=== PATIENT | female | born 1965 | race Caucasian/White ===

== ENCOUNTER 2018-08-12 05:13 | Inpatient (IN) ==
--- NOTE | 2018-07-24 10:54 | Anesthesiology Consultation ---
Date of Service July 24, 2018 Assessment & Plan (1) Encounter for pre-operative examination: - No anesthesia records that involve intubations. Chart Review Chart Review: Acceptable Risk for Surgery and Patient seen in Pre Admission T esting Consults Requested medical (Dr. Kacy Piper (07/20)) Patient was seen by PCPs office on 07/20 for preoperative evaluation. Per note from that visit, "found the patient to be medically stable for this procedure and anesthetic agent if her preop studies are unremarkable." Teaching & Discussion Pre-Anesthesia Teaching/Discussion Notes: Instructed NPO after midnight before surgery, except medications with 15 cc of water. Medication instructions provided according to the PAT guidelines. History Surgery Operation Date: 08/12/18 09:35 Proposed Procedures p Right Total Knee Arthroplasty - Tom Reese DO Height/Weight Height: 5 ft 5.5 in Weight: 113.2 kg Allergies Allergy/AdvReac Type Severity Reaction Status Date / Time No Known Allergies Allergy Unverified 07/17/18 09:00 Medications Home Medications Medication Instructions Recorded Confirmed Last Taken Levothyroxine 1 tab PO QAM 07/17/18 07/17/18 07/17/18 ibuprofen 1 - 2 tab PO UD PRN 07/17/18 07/17/18 Unknown Past Medical History Medical History H/O endoscopy Nausea and vomiting after administration of anesthetic agent Osteoarthritis Seasonal allergies Thyroid disease Exercise / Class Metabolic Activity II 4-5 Yardwork/Stairs/Walk 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 Denies CP or SOB. ) Past Family History Family History Father Atrial fibrillation Past Surgical History Surgical History History of arthroscopy of left knee History of arthroscopy of right knee History of bilateral cataract extraction History of cholecystectomy History of colonoscopy History of lipoma REMOVED FROM BACK History of total left knee replacement Past Anesthesia History No Hx of Anesthesia Complications and No Family Hx of Anesthesia Complications History of PONV History of PONV and Hx of Motion Sickness Social History Smoking Status: Never smoker Do You Dip or Chew Tobacco: No Hx Alcohol Use: No Hx Substance Use: No substance use type: does not use Review of Systems Patient denies chest pain, shortness of breath, dyspnea on exertion, cough, wheezing, palpitations. +Joint Pain (Knee) +Acid Reflux (Diet controlled) Physical Exam Vital Signs BP: 124/85 P: 88 R: 18 T: 97.7 SPO2: 97% on RA Constitutional + obese ENMT Thyromental Distance: > or= 3.5 Finger Breadths (3.5) Mallampati Class: I Clear post nasal drip with slight redness of pharynx Neck normal visual inspection and trachea midline; neck extension not limited Respiratory normal respiratory effort Auscultation: lungs clear to auscultation bilaterally Cardiovascular Rate/Rhythm: regular rate and regular rhythm Heart Sounds: no murmur Neurologic moves all extremities Psychiatric Orientation: alert and oriented x 3 Testing Laboratory Results 07/24/18 11:24 07/24/18 11:24 07/24/18 07/24/18 07/24/18 11:24 11:24 Unknown PT 10.3 INR 1.0 APTT 29.1 Urine Color Yellow Urine Appearance Clear Urine pH 7.0 Ur Specific [place] 1.018 Urine Protein Negative Urine Glucose (UA) Negative Urine Ketones Trace H Urine Nitrite Negative Ur Leukocyte Esterase Negative Blood Type AB Positive Antibody Screen POSITIVE A 07/24/18 Unknown Urine Culture - Final Urine,Clean Catch More than three types of organisms present, all high counts mixed probable skin hemalatha - No further identifications or sensitivities to follow. Spoke to blood bank regarding patients positive antibody. Nothing further needed per Christine. Electrocardiogram Date: 07/24/18 Findings: + NSR @ (74) and + no change from (07/14/17) Rightward axis. Chest X-Ray Date: 07/24/18 Findings: + NAD FINDINGS: The bones soft tissues and hemidiaphragms are normal. The cardiomediastinal silhouette is normal. The lungs are clear. The pulmonary vasculature is normal. IMPRESSION: Negative chest.
--- NOTE | 2018-07-24 10:56 | PAT Medication Instructions ---
Medication Instructions Date of Service July 24, 2018 Home Medications Levothyroxine 1 tab PO QAM ibuprofen 1 - 2 tab PO NEEDED ASK your surgeon for instructions ibuprofen 1 - 2 tab PO NEEDED Take morning of surgery With a small sip of water, OTHERWISE NOTHING TO EAT OR DRINK AFTER MIDNIGHT: Levothyroxine 1 tab PO QAM Other Notes If you have any questions please call us at [phone] or [phone] or [phone] or [phone]
--- NOTE | 2018-07-24 11:53 | XRay Report ---
XR chest Pre-admission PA/Lat CLINICAL HISTORY: pat preoperative evaluation COMPARISON STUDY: No previous studies for comparison. FINDINGS: The bones soft tissues and hemidiaphragms are normal. The cardiomediastinal silhouette is n ormal. The lungs are clear. The pulmonary vasculature is normal. IMPRESSION: Negative chest. The above report was generated using voice recognition software. It may contain grammatical, syntax or spelling errors. Electronically signed by: Luis London M.D. 07/24/2018 11:52 AM
[2018-07-24 12:00] LABS: Basophils # (auto) 0.02 K/uL (0-0.2); Basophils % (auto) 0.3 %; Eosinophils # (auto) 0.17 K/uL (0-0.5); Eosinophils % (auto) 2.5 %; Hematocrit (blood only) 40.4 % (37-47); Immature Granulocytes # (auto) 0.01 K/uL (0.00-0.02); Immature Granulocytes % (auto) 0.1 %; Lymphocytes # (auto) 2.01 K/uL (1.2-3.4); Lymphocytes % (auto) 29.1 %; Mean Corpuscular Hgb Conc 34.7 g/dL (32-36); Mean Corpuscular Volume 88.6 fL (80-100); Mean Platelet Volume 11.3 fL (7.4-10.4); Monocytes # (auto) 0.56 K/uL (0.11-0.59); Monocytes % (auto) 8.1 %; Neutrophils # (auto) 4.14 K/uL (1.4-6.5); Neutrophils % (auto) 59.9 %; Platelet Count 242 K/uL (130-400); RDW Coefficient of Variation 12.5 % (11.5-14.5); RDW Standard Deviation 39.8 fL (36.4-46.3); Red Blood Count 4.56 M/uL (4.2-5.4); White Blood Count 6.91 K/uL (4.8-10.8)
[2018-07-24 12:09] LABS: BUN Creatinine Ratio 15.9 (10-20); Calcium 8.7 mg/dl (8.5-10.1); Creatinine Clr Calc Pharmacy 117.6 ml/min; Est GFR (African American) 114.6; Est GFR (Non-African American) 98.9; Potassium 4.6 mmol/L (3.5-5.1)
[2018-07-24 12:15] LABS: Appearance Urine Clear (Clear); Bilirubin Urine Negative (Negative); Blood Urine Negative (Negative); Color Urine Yellow; Glucose Urine UA Negative (Negative); Ketones Urine Trace (Negative); Leukocyte Esterase Urine Negative (Negative); Nitrite Urine Negative (Negative); Protein Urine Negative (Negative); Specific Gravity Urine 1.018 (1.000-1.030); Urobilinogen Urine Negative (Negative)
[2018-07-24 12:26] LABS: Partial Thromboplastin Ratio 1.1; Partial Thromboplastin Time 29.1 Seconds (21.0-31.0); Prothrombin Time 10.3 Seconds (9.0-12.0)
--- NOTE | 2018-07-30 18:04 | History & Physical Report ---
Date of Service July 30, 2018 Date of Surgery: 08-12-18 Assessment & Plan (1) Tricompartment osteoarthritis of right knee: Risks and benefits of procedure discussed in detail today, patient would like to proceed with a Right total knee replacement at [facility] as scheduled. will obtain medical clearance prior to surgery as well as obtain PATs at [facility]. Will place on ASA 81mg po bid x 1 month post op, f/u 2 weeks post op for routine post-operative care and x-ray, sooner if having any problems. will make arrangements for HHPT at the time of discharge. At this point in time, has failed conservative measures and would like to proceed with surgical intervention. she had issues with the oxycodone after her other knee, would like to go home with [place]. History of Present Illness Chief Complaint: right knee pain Primary Care Provider: DO Mariana Floyd is a 53 year old female that presents for pre-op evaluation prior to a right total knee replacement at [facility] on 08-12-18. she has been having pain in this knee for several years now which has gradually worsened, now affecting her activities of daily living including walking, standing and using stairs. she has tried and failed prior cortisone injections, visco injection as well as oral anti-inflammatories. currently rates her pain as 4/10, worst is 8/10. she complains of pain, swelling and decreased range of motion. she has failed conservative measures and would like to proceed with total knee replacement. she previously underwent left TKA and is doing well. Allergies Allergy/AdvReac Type Severity Reaction Status Date / Time No Known Allergies Allergy Unverified 07/17/18 09:00 Home Medications Home Medications Medication Instructions Recorded Confirmed Type Levothyroxine 1 tab PO QAM 07/17/18 07/17/18 History ibuprofen 1 - 2 tab PO UD PRN 07/17/18 07/17/18 History Past Med/Surg History Medical History H/O endoscopy Nausea and vomiting after administration of anesthetic agent Osteoarthritis Seasonal allergies Thyroid disease Surgical History History of arthroscopy of left knee History of arthroscopy of right knee History of bilateral cataract extraction History of cholecystectomy History of colonoscopy History of lipoma REMOVED FROM BACK History of total left knee replacement Family History Father Atrial fibrillation Social History Preferred Language: Yakut Communication Ability: Effective Filteration Operator Required: No Beliefs That Will Affect Care: None Current Living Situation: Family Other Information That Helps Us Care for You: No Feels Safe at Home: Yes Smoking Status: Never smoker Do You Dip or Chew Tobacco: No Hx Alcohol Use: No Hx Substance Use: No Review of Systems Review of Systems: All systems reviewed & are unremarkable except as noted in HPI & below Constitutional: no fever, no chills and no sweats Respiratory: no cough and no dyspnea Cardiovascular: no chest pain Gastrointestinal: no abdominal pain, no nausea and no vomiting Musculoskeletal: as per Subjective / HPI Physical Exam Physical Exam: Ht: 5ft 5in Wt: 113.2kg BP: 126/80 Pulse: 86 Constitutional: WD/WN, vitals as above no acute distress Respiratory: normal respiratory effort, lungs clear to auscultation no resp iratory distress and does not use accessory muscles Cardiovascular: RRR, no murmur, no edema Gastrointestinal (Abdomen): normal bowel sounds, soft, nontender, no hepatosplenomegaly Musculoskeletal: Right Knee Exam: she ambulates with a limp, overall varus alignment, there is no atrophy, warmth or ecchymosis, mild effusion, diffuse tenderness to the knee greatest over her medial compartment, negative patellar apprehension , mild crepitation with motion, Patella position neutral, josh's negative, Shiv's - lateral positive, Shiv's - medial positive, Posterior drawer- negative, anterior drawer negative, valgus stress negative, varus stress negative, no extensor lag, pain with active range of motion, less pain with passive painful ROM, Range of motion 0/3/110. No pain with active/passive ROM of ankle. Lower extremity strength normal. Lower extremity neuro-vascular is normal. well healed surgical incisions from prior ACL. Results & Data Diagnostic Findings Right Knee X-ray from August 2017 showing advanced degenerative changes to the right knee, narrowing of the medial compartment and patello-femoral joint with patellar spurring noted, endobutton noted from prior ACL reconstructions. osteophyte formation and subchondral sclerosis noted. overall varus alignment. no acute bony pathology noted.
[~2018-08-12 05:13] MED LIST: MISSING PHYSICIAN SIGNATURE ON ORDER SCH
[2018-08-12] MEDS ORDERED: CeleBREX 200 MG CAP ONE (05:54)
[2018-08-12] MEDS ORDERED: dexAMETHasone 4 MG TAB PO ONE (05:54)
[2018-08-12] MEDS ORDERED: FAMOTIDINE 20 MG TAB ONE (05:54)
[2018-08-12] MEDS ORDERED: GABAPENTIN 300 MG CAP ONE (05:55)
[2018-08-12] MEDS ORDERED: METOCLOPRAMIDE HCL 10 MG TABLET ONE (05:55)
[2018-08-12] MEDS ORDERED: CEFAZOLIN 2,000 MG/15 ML IV PUSH IV ONE (05:55)
[2018-08-12] MEDS ORDERED: ACETAMINOPHEN 500 MG TAB ONE (05:55)
[2018-08-12] MEDS ORDERED: ACETAMINOPHEN 500 MG TAB PO SCH (06:00)
[2018-08-12] MEDS ORDERED: FAMOTIDINE 20 MG TAB PO SCH (06:00)
[2018-08-12] MEDS ORDERED: LR 60ML/HR IV SCH (06:00)
[2018-08-12] MEDS ORDERED: CEFAZOLIN 2000MG 2,000 MG/15 ML SYR IV SCH (06:00)
[2018-08-12] MEDS ORDERED: LR 500ML BOLUS, THEN 15ML/HR IV SCH (06:00)
[2018-08-12] MEDS ORDERED: METOCLOPRAMIDE HCL 10 MG TABLET PO SCH (06:00)
[2018-08-12] MEDS ORDERED: SCOPOLAMINE 1.5 MG TDSY TD SCH (06:00)
[2018-08-12] MEDS ORDERED: dexAMETHasone 4 MG TAB PO SCH (06:00)
[2018-08-12] MEDS ORDERED: ROPIVACAINE 0.5% HCL/PF 150 MG, BUPIVACAINE 0.5% MPF 30 ML, EPINEPHrine 30MG/30ML (OR U... INFIL SCH (06:00)
[2018-08-12] MEDS ORDERED: CeleBREX 200 MG CAP PO SCH (06:00)
[2018-08-12] MEDS ORDERED: GABAPENTIN 300 MG PO SCH (06:00)
[2018-08-12] MEDS ORDERED: ROPIVACAINE 0.5% 5 MG/ML 30 ML VIAL ONE (06:23)
[2018-08-12] MEDS ORDERED: BUPIVACAINE 0.5 % 5 MG/1 ML PF 10ML VIAL ONE (06:23)
[2018-08-12] MEDS ORDERED: MIDAZOLAM HCL 1 MG/ML 2ML VIAL ONE ×2 (06:29)
[2018-08-12] MEDS ORDERED: ATROPINE SULFATE 0.1 MG/ML 10ML SYR IV PRN (06:30)
[2018-08-12] MEDS ORDERED: ePHEDrine sulfate 50 MG/ML AMP IV PRN (06:30)
[2018-08-12] MEDS ORDERED: ONDANSETRON INJ 2 MG/ML 2 ML VIAL IV PRN (06:30)
[2018-08-12] MEDS ORDERED: fentaNYL citrate 100 MCG/2 ML VIAL ONE (06:30)
[2018-08-12] MEDS ORDERED: fentaNYL citrate 100 MCG/2 ML VIAL IV PRN (06:30)
[2018-08-12] MEDS ORDERED: LIDOCAINE HCL 2% 2 ML VIAL/AMP(20MG/ML) INFIL ONE (06:31)
[2018-08-12] MEDS ORDERED: PROPOFOL IV EMULSION 10 MG/ML 20 ML VIAL IV ONE (06:31)
[2018-08-12] MEDS ORDERED: ONDANSETRON INJ 2 MG/ML 2 ML VIAL ONE (06:31)
[2018-08-12] MEDS ORDERED: POVIDONE-IODINE OP SOLN 30 ML BTL ONE (06:34)
[2018-08-12] MEDS ORDERED: BACITRACIN INJ 50,000 UNIT VIAL ONE (06:34)
[2018-08-12] MEDS ORDERED: TRANEXAMIC ACID 1,000 MG **IV Pre-op IV SCH (07:00)
--- NOTE | 2018-08-12 07:03 | History & Physical Bridge Note ---
Date of Service August 12, 2018 History & Physical Bridge Note I have examined the patient, reviewed the History & Physical and in the interval since the performance of the History & Physical I have noted the following changes of clinical significance: no changes noted
[2018-08-12] MEDS ORDERED: TRANEXAMIC ACID 1,000 MG **IV Intra-op IV SCH (07:30)
--- NOTE | 2018-08-12 08:04 | Operative Report ---
Post Operative Report Pre & Post Diagnosis Operation Date: 08/12/18 07:00 Pre-Op Diagnosis: Unilateral Primary Osteoarthritis, Right Knee Post-Op Diagnosis: Unilateral Primary Osteoarthritis, Right Knee Procedure Operation Date: 08/12/18 07:00 Actual Procedures p Right Total Knee Arthroplasty, Cemented(Right) utilizing Walker & Nephew non- block journey 2 total knee arthroplasty size 5 femur 4 tibia 12 polyethylene 29 oval patella- Tom Reese DO Surgeon Tom Reese DO [employer] Luis STONE Estimated Blood Loss 5 Findings Consistent with Post-Op Diagnosis Patient presents with severe end-stage tricompartmental degenerative joint disease of the right knee status post previous ACL tear with reconstruction she has not medial sclerosis large osteophytes bone to bone subchondral eburnated bone with subchondral osteophytes and subchondral cysts and marginal osteophytes she has moderate to large effusion she presents with failed attempts at conservative management Specimens Bone cartilage Drains Medium bore Hemovac Complications none Disposition Accompanied Patient To Recovery: No Disposition: Recovery Room Indications Patient presents for right total knee arthroplasty after failing attempts at conservative management including physical therapy anti-inflammatories relative rest activity modification cortical steroid injections Visco supplementation is previous ACL reconstruction she also is undergone successful left total knee arthroplasty presents for right total knee arthroplasty with the above intraoperative findings noted Description of Procedure After proper prepping and draping of the Right lower extremity anterior midline incision was made over the region of the extensor extensor mechanism after meticulous hemostasis was obtained and maintained in subcutaneous tissues a medial parapatellar incision was made The patella was subluxed lateralward the medial lateral gutter were cleaned from any hypertrophic synovitis and scar tissue of the distal femoral block was placed and the distal femoral osteotomy cut was made subsequently the chamfers anterior and posterior osteotomy cuts were made utilizing the 4-in-1 block the tibia was subsequently subluxed anteriorward medial and ateral meniscal remnants were excised in their entirety remnants of the anterior and posterior cruciate ligaments were excised in their entirety excellent exposure of the proximal tibia was obtained the tibial osteotomy guide was placed on the proximal tibial osteotomy cut was made once again the knee was irrigated with copious amounts of sterile saline solution the patella was subsequently everted lateralward thickened scar tissue around the patella was removed the patella was subsequently cut utilizing a freehand technique and was drilled prepared for final preparation and placement of patella socially flexion-extension gaps were checked and the equal and symmetric trials were placed to the appropriate femoral and tibial trials with poly-spacer being placed for equal flexion and extension gaps and full range of motion including extension to 0 and flexion to 140� the trial components after having been taken to recovery range of motion was subsequently removed meticulous hemostasis was obtained and maintained subsequently a knee block injection of joint cocktail including ropivacaine 0.5% 150 mg. Bupivacaine 0.5% epinephrine 1-200,030 mL's toradol 30 mg dexamethasone 4 mg ketamine 10 mg clonidine 100 micrograms normal saline solution 30 mg was infiltrated into the soft tissues of the posterior knee medial lateral gutters and periosteal synovium special attention was paid to protect neurovascular structures at all times subsequently trial components having been removed the knee was irrigated with sterile saline solution. debris was removed the proximal tibia was subsequently prepared and was made ready for the placement of the tibial component tibial component was also cemented and tamped into position the femoral component was subsequently placed and cemented in the position the patellar component was subsequently cemented in position because hemostasis once again obtained and maintained wound having been thoroughly irrigated with debridement and debridement lavage was performed as well as a medial parapatellar incision closed with #1 Vicryl in interrupted fashion subcutaneous was closed with #2 Vicryl skin was closed with skin clips. PA-C was necessary for prepping and drapping as well as wound closure of deep fascia Sub cutaneous tissue and skin and was necessary for the case. A sterile compressive dressing was placed patient was taken to recovery in stable condition of report dictated by Hugh I attest to the content of the Intraoperative Record and any orders documented therein. Any exceptions are noted below. I attest to the content of the Intraoperative Record and any orders documented therein. Any exceptions are noted below.
--- NOTE | 2018-08-12 09:35 | XRay Report ---
RIGHT KNEE 2 VIEWS History: Right total knee arthroplasty. Degenerative arthritis. Postop. FINDINGS: The patient is status post a right total knee arthroplasty. The hardware is intact. No frac ture or dislocation. Surgical drains are in place. IMPRESSION: Right total knee arthroplasty. No evidence for hardware complication. Electronically signed by: Deniz Bhat M.D. 08/12/2018 9:33 AM
[2018-08-12] MEDS ORDERED: HYDROmorphone INJ 1 MG/ML SYRINGE IV PRN (10:08)
[2018-08-12] MEDS ORDERED: MAGNESIUM HYDROXIDE SUSP 30 ML UDC PO PRN (10:08)
[2018-08-12] MEDS ORDERED: BISACODYL 10 MG SUPP PR PRN (10:08)
[2018-08-12] MEDS ORDERED: NALOXONE HCL 0.4 MG/1 ML VIAL/CARP IV PRN (10:08)
[2018-08-12] MEDS ORDERED: METOCLOPRAMIDE HCL INJ 5 MG/ML 2 ML VIAL IV PRN (10:08)
--- NOTE | 2018-08-12 10:39 | Anesthesiology Progress Note ---
Date of Service August 12, 2018 Anesthesia Post Procedure Vital Signs Vital Signs: Temp Pulse Pulse Pulse Resp BP Pulse Ox 08/12/18 10:30 68 18 107/67 98 08/12/18 10:00 97.7 F 77 15 113/70 96 08/12/18 09:55 97.3 F L 69 12 102/59 L 96 08/12/18 09:45 69 12 99/65 L 97 08/12/18 09:30 97.3 F L 69 15 129/63 99 08/12/18 09:20 68 11 L 122/58 L 99 08/12/18 09:10 78 11 L 121/73 100 08/12/18 09:00 80 14 116/56 L 100 08/12/18 08:50 98.1 F 80 14 107/56 L 96 08/12/18 05:34 97.9 F 78 18 133/80 94 Pain Intensity Right Knee: Pain Intensity: 0 Transfer of Care Handoff Completed per policy Notes Mental Status: alert / awake / arousable and participated in evaluation Patient Amnestic to Procedure: Yes Nausea / Vomiting: adequately controlled Pain: adequately controlled Airway Patency, RR, SpO2: stable & adequate BP & HR: stable & adequate Hydration State: stable & adequate Neuraxial Anesthesia: was administered and sensory block is resolving Anesthetic Complications: no major complications apparent and Pt Satisfied with anesthetic care
[2018-08-12] MEDS ORDERED: SODIUM CHLORIDE 0.9% 1000ML 1,000 ML IV SCH (11:00)
[2018-08-12] MEDS: MULTIVITAMIN TAB PO SCH (12:53)
[2018-08-12] MEDS: ACETAMINOPHEN 500 MG TAB PO SCH ×2 (12:53→22:54)
[2018-08-12] MEDS: ASPIRIN 81 MG ECTAB PO SCH ×2 (12:53→20:20)
[2018-08-12] MEDS: DOCUSATE SODIUM 100 MG CAP PO SCH ×2 (12:53→20:20)
[2018-08-12] MEDS: KETOROLAC TROMETHAMINE 15 MG/ML VIAL IV SCH ×3 (12:53→22:55)
[2018-08-12] MEDS: CEFAZOLIN 2000MG 2,000 MG/15 ML SYR IV SCH ×2 (14:24→22:55)
[2018-08-12] MEDS ORDERED: CHECK SCOPOLAMINE PATCH PLACEMENT SCH (16:00)
[2018-08-12] MEDS: OXYCODONE HCL IR 5 MG TAB (IMMEDIATE RELEASE) PO PRN (18:31)
[2018-08-12] MEDS: SENNA 8.6 MG TAB PO SCH (20:20)
[2018-08-13] MEDS: CEFAZOLIN 2000MG 2,000 MG/15 ML SYR IV SCH (00:06)
[2018-08-13] MEDS: ONDANSETRON INJ 2 MG/ML 2 ML VIAL IV PRN ×2 (00:06→16:01)
[2018-08-13] MEDS: OXYCODONE HCL IR 5 MG TAB (IMMEDIATE RELEASE) PO PRN ×4 (00:06→20:34)
[2018-08-13] MEDS: LEVOTHYROXINE SODIUM 75 MCG TABLET PO SCH (05:48)
[2018-08-13] MEDS: ACETAMINOPHEN 500 MG TAB PO SCH ×3 (05:49→21:23)
[2018-08-13] MEDS: KETOROLAC TROMETHAMINE 15 MG/ML VIAL IV SCH (05:49)
[2018-08-13 06:01] LABS: Mean Corpuscular Hgb Conc 35.1 g/dL (32-36); Mean Corpuscular Volume 89.6 fL (80-100); Mean Platelet Volume 10.7 fL (7.4-10.4); Platelet Count 246 K/uL (130-400); RDW Coefficient of Variation 12.9 % (11.5-14.5); RDW Standard Deviation 41.9 fL (36.4-46.3); Red Blood Count 4.13 M/uL (4.2-5.4); White Blood Count 15.88 K/uL (4.8-10.8)
[2018-08-13 06:41] LABS: BUN Creatinine Ratio 19.3 (10-20); Calcium 7.9 mg/dl (8.5-10.1); Creatinine Clr Calc Pharmacy 106.5 ml/min; Est GFR (African American) 102.2; Est GFR (Non-African American) 88.2
[2018-08-13] MEDS: ASPIRIN 81 MG ECTAB PO SCH ×2 (08:17→20:32)
[2018-08-13] MEDS: DOCUSATE SODIUM 100 MG CAP PO SCH ×2 (08:17→20:34)
[2018-08-13] MEDS: MULTIVITAMIN TAB PO SCH (08:17)
--- NOTE | 2018-08-13 09:36 | Orthopedic Progress Note ---
Date of Service August 13, 2018 Assessment & Plan (1) Tricompartment osteoarthritis of right knee: Postop day 1 status post right total knee arthroplasty. PT and OT protocols today. Weightbearing as tolerated. (I have spoken to physical therapist today who states that she did okay but was having some lightheadedness and at the end of the session was feeling kind of wiped out.) DVT prophylaxis with aspirin twice daily, SCDs and FATIMAH hose. Pain management with acetaminophen, oxycodone, hydromorphone. DC planning-patient is hoping to go home with home health services. Subjective Postop day 1 status post right total knee arthroplasty. Patient is currently sitting up in her chair at the bedside. She is having some mild pain this morning. She is also having some decreased sensation and motion in her right foot. She states that is actually getting better since last night. She denies shortness of breath or chest pain but states that with narcotics, they do tend to make her little lightheaded at times. She is currently not lightheaded at this time. She denies calf pain. We discussed the possibility of her going home today versus tomorrow depending on how she does in PT and how her pain control is. Physical Exam Physical Exam: Dressings are clean, dry, intact. Calves are soft nontender. She has a mild foot drop at this time. She has good plantarflexion and dorsiflexion is slowly coming back. She had 125 mL of drainage from her Hemovac in the late shift. Results & Data Vital Signs (Past 12 Hours) Vital Signs Temp Pulse Resp BP Pulse Ox 08/13/18 06:53 36.5 C 53 L 18 107/69 94 08/13/18 02:48 36.4 C L 54 L 16 107/66 95 08/12/18 23:10 36.4 C L 53 L 14 116/76 92 Laboratory Results Laboratory Results WBC 15.88 K/uL (4.8-10.8) H 08/13/18 05:37 RBC 4.13 M/uL (4.2-5.4) L 08/13/18 05:37 Hgb 13.0 g/dL (12.0-16.0) 08/13/18 05:37 Hct 37.0 % (37-47) 08/13/18 05:37 MCV 89.6 fL (80-100) 08/13/18 05:37 MCH 31.5 pg (25-34) 08/13/18 05:37 MCHC 35.1 g/dL (32-36) 08/13/18 05:37 RDW Std Deviation 41.9 fL (36.4-46.3) 08/13/18 05:37 RDW Coeff of Clifford 12.9 % (11.5-14.5) 08/13/18 05:37 Plt Count 246 K/uL (130-400) 08/13/18 05:37 MPV 10.7 fL (7.4-10.4) H 08/13/18 05:37 Immature Gran % (Auto) 0.1 % 07/24/18 11:24 Neut % (Auto) 59.9 % 07/24/18 11:24 Lymph % (Auto) 29.1 % 07/24/18 11:24 [place]y % (Auto) 8.1 % 07/24/18 11:24 Eos % (Auto) 2.5 % 07/24/18 11:24 Baso % (Auto) 0.3 % 07/24/18 11:24 Immature Gran # (Auto) 0.01 K/uL (0.00-0.02) 07/24/18 11:24 Neut # (Auto) 4.14 K/uL (1.4-6.5) 07/24/18 11:24 Lymph # (Auto) 2.01 K/uL (1.2-3.4) 07/24/18 11:24 [place]y # (Auto) 0.56 K/uL (0.11-0.59) 07/24/18 11:24 Eos # (Auto) 0.17 K/uL (0-0.5) 07/24/18 11:24 Baso # (Auto) 0.02 K/uL (0-0.2) 07/24/18 11:24 PT 10.3 Seconds (9.0-12.0) 07/24/18 11:24 INR 1.0 (0.9-1.1) 07/24/18 11:24 APTT 29.1 Seconds (21.0-31.0) 07/24/18 11:24 PTT Ratio 1.1 07/24/18 11:24 Sodium 139 mmol/L (136-145) 08/13/18 05:37 Potassium 4.0 mmol/L (3.5-5.1) 08/13/18 05:37 Chloride 104 mmol/L (98-107) 08/13/18 05:37 Carbon Dioxide 30 mmol/L (21-32) 08/13/18 05:37 5.0 (3-11) 08/13/18 05:37 BUN 15 mg/dl (7-18) 08/13/18 05:37 0.77 mg/dl (0.6-1.2) 08/13/18 05:37 Est Cr Clr Drug Dosing 106.5 ml/min 08/13/18 05:37 Est GFR ( Amer) 102.2 08/13/18 05:37 Est GFR (Non-Af Amer) 88.2 08/13/18 05:37 19.3 (10-20) 08/13/18 05:37 Glucose 146 mg/dl (70-99) H 08/13/18 05:37 Calcium 7.9 mg/dl (8.5-10.1) L 08/13/18 05:37 Yellow 07/24/18 Unknown Clear (Clear) 07/24/18 Unknown 7.0 (4.5-7.5) 07/24/18 Unknown Ur Specific [place] 1.018 (1.000-1.030) 07/24/18 Unknown Negative (Negative) 07/24/18 Unknown Negative (Negative) 07/24/18 Unknown Trace (Negative) H 07/24/18 Unknown Negative (Negative) 07/24/18 Unknown Negative (Negative) 07/24/18 Unknown Negative (Negative) 07/24/18 Unknown Negative (Negative) 07/24/18 Unknown Ur Leukocyte Esterase Negative (Negative) 07/24/18 Unknown POC Ur Test NEG (NEG) 08/12/18 06:45 Blood Type AB Positive 08/12/18 05:48 Antibody Screen NEGATIVE 08/12/18 05:48 Antibody Identification Anti-P1 07/24/18 11:24 Crossmatch See Detail 08/12/18 05:48
--- NOTE | 2018-08-13 10:07 | Anesthesiology Progress Note ---
Date of Service August 13, 2018 Anesthesia Post Procedure Vital Signs Vital Signs: Temp Pulse Resp BP Pulse Ox 08/13/18 06:53 36.5 C 53 L 18 107/69 94 08/13/18 02:48 36.4 C L 54 L 16 107/66 95 08/12/18 23:10 36.4 C L 53 L 14 116/76 92 08/12/18 20:46 72 16 145/81 H 94 08/12/18 16:44 116/76 08/12/18 16:07 36.4 C L 63 18 91/59 L 95 08/12/18 13:00 36.3 C L 64 15 104/68 96 08/12/18 11:00 66 16 117/68 96 08/12/18 10:30 68 18 107/67 98 Pain Intensity Right Knee: Pain Intensity: 2 Notes Mental Status: alert / awake / arousable and participated in evaluation Nausea / Vomiting: adequately controlled Pain: adequately controlled Airway Patency, RR, SpO2: stable & adequate BP & HR: stable & adequate Hydration State: stable & adequate
[2018-08-13] MEDS: SENNA 8.6 MG TAB PO SCH (20:32)
[2018-08-13] MEDS: CeleBREX 200 MG CAP PO SCH (20:33)
[2018-08-14] MEDS: OXYCODONE HCL IR 5 MG TAB (IMMEDIATE RELEASE) PO PRN ×2 (01:06→05:12)
[2018-08-14] MEDS: ONDANSETRON INJ 2 MG/ML 2 ML VIAL IV PRN ×2 (01:06→07:09)
[2018-08-14] MEDS: ACETAMINOPHEN 500 MG TAB PO SCH ×2 (05:13→13:31)
[2018-08-14] MEDS: LEVOTHYROXINE SODIUM 75 MCG TABLET PO SCH (06:45)
--- NOTE | 2018-08-14 07:02 | Orthopedic Progress Note ---
Date of Service August 14, 2018 Assessment & Plan (1) Tricompartment osteoarthritis of right knee: Postop day 2 status post right total knee arthroplasty. PT and OT protocols today. Weightbearing as tolerated. DVT prophylaxis with aspirin twice daily, SCDs and FATIMAH hose. Pain management with acetaminophen, oxycodone, hydromorphone. DC planning-patient is hoping to go home with home health services, will see how she performs in PT today will d/c home with Zofran Subjective Postop day 2 status post right total knee arthroplasty. denies CP/SOB, denies Fever/chills, c/o nausea but improved with Zofran Physical Exam Physical Exam: Vital Signs Temp Pulse Resp BP Pulse Ox 08/14/18 06:38 36.4 C L 62 18 116/75 95 08/13/18 23:26 36.5 C 58 L 18 109/69 96 08/13/18 15:01 36.6 C 65 17 105/68 95 08/13/18 11:21 36.3 C L 57 L 18 105/68 95 Intake and Output 08/13/18 08/14/18 08/14/18 22:59 06:59 14:59 Intake Total 875 / 1125 250 / 1125 Output Total 100 / 200 Balance 775 / 925 250 / 925 Intake: Oral 875 / 1125 250 / 1125 Output: Drain Output 100 / 200 Right Knee Hem ovac 100 / 200 Other: # Unmeasured Voi ds 1 Musculoskeletal: NVDI, calf SNT, negative jonny sign. DP palpable, able to wiggle toes/ankle movement without difficulty. MIR dressing clean dry and intact. expected post-operative bruising noted. Results & Data Vital Signs (Past 12 Hours) Vital Signs Temp Pulse Resp BP Pulse Ox 08/14/18 06:38 36.4 C L 62 18 116/75 95 08/13/18 23:26 36.5 C 58 L 18 109/69 96
--- NOTE | 2018-08-14 07:03 | Discharge Summary ---
Date of Service date of discharge: August 14, 2018 Date of Admission: 08/12/18 Admission HPI Per Admitting Provider Mariana is a 53 year old female that presents for pre-op evaluation prior to a right total knee replacement at [facility] on 08-12-18. she has been having pain in this knee for several years now which has gradually worsened, now affecting her activities of daily living including walking, standing and using stairs. she has tried and failed prior cortisone injections, visco injection as well as oral anti-inflammatories. currently rates her pain as 4/10, worst is 8/10. she complains of pain, swelling and decreased range of motion. she has failed conservative measures and would like to proceed with total knee replacement. she previously underwent left TKA and is doing well. Principal Diagnosis right knee osteoarthritis Discharge Exam Vital Signs Temp Pulse Resp BP Pulse Ox 08/14/18 06:38 36.4 C L 62 18 116/75 95 08/13/18 23:26 36.5 C 58 L 18 109/69 96 08/13/18 15:01 36.6 C 65 17 105/68 95 08/13/18 11:21 36.3 C L 57 L 18 105/68 95 Intake and Output 08/13/18 08/14/18 08/14/18 22:59 06:59 14:59 Intake Total 875 / 1125 250 / 1125 Output Total 100 / 200 Balance 775 / 925 250 / 925 Intake: Oral 875 / 1125 250 / 1125 Output: Drain Output 100 / 200 Right Knee Hemovac 100 / 200 Other: # Unmeasured Voids 1 Musculoskeletal NVDI, calf SNT, negative jonny sign. DP palpable, able to wiggle toes/ankle movement without difficulty. MIR dressing clean dry and intact. expected post- operative bruising noted. Discharge Data Allergies Allergy/AdvReac Type Severity Reaction Status Date / Time No Known Allergies Allergy Unverified 08/12/18 05:32 Consultations 08/12/18 10:08 Consult Case Management - Discharge Planning Routine Procedures Performed Operation Date: 08/12/18 07:00 Actual Procedures p Right Total Knee Arthroplasty, Cemented(Right) - Tom Reese DO Ordered Studies 08/12/18 05:00 US - OR guided needle placemen Routine Hospital Course (1) Tricompartment osteoarthritis of right knee: Postop day 2 status post right total knee arthroplasty. PT and OT protocols today. Weightbearing as tolerated. DVT prophylaxis with aspirin twice daily, SCDs and FATIMAH hose. Pain management with acetaminophen, oxycodone, hydromorphone. DC planning-patient is hoping to go home with home health services, will see how she performs in PT today will d/c home with [facility] Total Time Total Time Spent Total Time Spent (In Minutes): 15 Total Time Includes: Examination of the Patient, Discharge Planning and Medication Reconciliation Discharge Plan Discharge Items Patient Disposition: Home - Home Health Services Reason For Visit: Unilateral Primary Osteoarthritis, Right Knee Discharge Diagnosis: right total knee replacement Condition: Good Discharge Goals: Decrease discomfort, Improve function and Increase independence Activity: Per 'Additional Instructions' section Lifting: Wait until after follow-up appointment Weightbearing: Right weightbearing Weightbearing Comment: WBAT with walker Non-emergency contact: Primary Care Provider and Surgeon Call non-emergency contact if: you have any medication questions, your temperature is above 101, your wound has increased redness, your wound has increased drainage and your wound pain has increased Follow-up/Referrals: Kacy Piper DO [Primary Care Provider] - Diet: Regular Addtl Provider Instructions: ACTIVITY RECOMMENDATIONS: SELF CARE INSTRUCTIONS AFTER TOTAL KNEE REPLACEMENT A. You may need to continue a physical therapy program after discharge from the hospital. There are several options available to you. Your doctor will assist you in selecting the best one for you. 1. An out-patient facility 2 to 3 times a week for therapy or home therapy. 2. Continue working on all exercises taught to you in the hospital. Your goals should be to increase bending of your knee to 90 degrees and beyond and to fully straighten your knee. B. You may progress at your own pace from walking with a walker or crutches to a cane; then to no assistive devices. C. Make walking a part of your daily routine. Be up as much as comfortable with rest periods throughout the day. Rest with leg elevation is very important. Use the ice wrap frequently for the first 3-4 weeks. D. There are no restrictions on activities. You may ride in a car, shop, participate in senior procurement specialist and all social activities. E. Wear the long elastic stockings (FATIMAH hose) 20 hours a day for 2 weeks after surgery. They can be removed several times a day for laundering and for a bath. F. You may shower, no tub baths until cleared by your doctor. SPECIAL CARE INSTRUCTIONS: VERY IMPORTANT TO READ AND REVIEW A. There are a few signs you need to watch for after you are home. Call [facility] if you notice any of the followin. Increased severe knee pain. Some pain is expected especially when you exercise. 2. Increased swelling in your leg or knee; pain or swelling of the calf muscle in either lower leg. 3. Any fluid drainage from the incision. 4. Shortness of breath or chest pain. B. Please call [facility] at if you have any concerns or questions about your operation or recovery. The doctor or his nurse will return your call promptly. C. You must take antibiotics before dental work, bladder, bowel or other surgery. Your doctor will provide you with a permanent care to carry describing this precaution. IMPORTANT: * REMEMBER TO TAKE ASPIRIN, 81 MG, TWICE DAILY FOR 4 WEEKS UNLESS OTHERWISE DIRECTED. THIS IS YOUR BLOOD THINNER. * HIGH RISK PATIENTS MAY BE PRESCRIBED A STRONGER BLOOD THINNER. THIS WILL BE PROVIDED AT DISCHARGE. * CALL IF INCREASED PAIN, REDNESS, DRAINAGE OR FEVER GREATER THAT 101. * WEAR FATIMAH HOSE 20 HOURS PER DAY FOR 2 WEEKS. * MIR Dressing- This is a large suction dressing covering your incision. This will help pull any excess drainage from the wound and allow your incision to heal properly. You may shower with this if you can keep the unit outside of the shower. If any bleeding or leakage is noted please call your doctor's office. This will remain on your incision for 7 days and then should be removed. This can be done yourself or by the home nursing staff if applicable. The entire unit is disposable once removed. Once removed, keep incision clean and dry. If redness or drainage is noted, please call your surgeon. DERMABOND Prineo- This is a mesh tape dressing that is covered with glue. It should remain in place until the incision is properly healed, usually 10-14 days. This dressing is designed to naturally slough off. You may trim the excess mesh tape as it peels off. Incision may be briefly wet in a shower. Dry immediately by blotting with a clean, dry towel. Do not bath or swim until instructed by your doctor. Do not scratch, rub, or pick at the dressing. Do not apply any topical ointments or lotions until dressing is completely removed and/or instructed by your doctor. There may be a small piece of suture material at one end of your incision. Do not pull or trim this. If it is bothersome or catching on clothing, you may cover it with a band-aid. IF INCISION IS LEAKING THROUGH DRESSING, CALL THE OFFICE . FOLLOW UP VISIT: If appointment is not already scheduled: Please call [facility] to make a follow-up appointment for 2 weeks after your surgery at . Prescriptions: New acetaminophen [Tylenol Extra Strength] 500 mg Tablet 1,000 mg PO Q8 14 Days Qty: 84 RF: 0 aspirin [Ecotrin Low Strength] 81 mg Tablet,Delayed Release (Dr/Ec) 81 mg PO BID 30 Days Qty: 60 RF: 0 celecoxib [Celebrex] 200 mg Capsule 200 mg PO BID 30 Days Qty: 60 RF: 0 docusate sodium 100 mg Capsule 100 mg PO BID 10 Days Qty: 20 RF: 0 multivitamin [Daily-Escobar] Tablet 1 tab PO QAM Qty: 30 RF: 0 ondansetron HCl [Zofran] 8 mg tablet 8 mg PO Q8H PRN (Reason: nausea and vomiting) Qty: 20 RF: 0 cefadroxil 500 mg capsule 500 mg PO BID Qty: 10 RF: 0 oxycodone 5 mg tablet 5 - 10 mg PO Q6H PRN (Reason: pain) Qty: 30 RF: 0 Continued Levothyroxine 75 mcg PO QAM RF: 0 Discontinued ibuprofen 200 mg Tablet 1 - 2 tab PO UD PRN (Reason: Pain) RF: 0 Stand-Alone Forms: [facility] Discharge Orders: Discharge Order (Routine); Ordered 08/14/18 Ordered By: Luis Vera Admission Data Admit Date/Time: 08/12/18 09:00 Attending Provider: Tom Reese Admit Provider: Tom Reese Primary Care Provider: Kacy Piper Service: Surgical Services Other Pending Studies at Discharge: No
[2018-08-14] MEDS: MULTIVITAMIN TAB PO SCH (09:32)
[2018-08-14] MEDS: ASPIRIN 81 MG ECTAB PO SCH ×2 (09:33→12:37)
[2018-08-14] MEDS: CeleBREX 200 MG CAP PO SCH (09:33)
[2018-08-14] MEDS: DOCUSATE SODIUM 100 MG CAP PO SCH (09:33)
== END 2018-08-14 13:54 | disposition home health service (06) | DRG 470 ==
LOC: ASU 05:13 → 3E 09:00